=== PATIENT | male | born 1980 | race Caucasian/White ===

== ENCOUNTER 2021-12-25 16:56 | Inpatient (IN) | payer OTHER ==
[2021-12-25] MEDS ORDERED: BISMUTH SUBSALICYLATE 524 MG/30 ML PO PRN (21:25)
[2021-12-25] MEDS ORDERED: MAG HYDROX/AL HYDROX/SIMETH 30 ML UNIT-DOSE CUP PO PRN (21:25)
[2021-12-25] MEDS ORDERED: NICOTINE 10 MG CARTRIDGE (INHALER) IH PRN (21:25)
[2021-12-25] MEDS ORDERED: ONDANSETRON *ODT* 4 MG TABLET SL PRN (21:25)
[2021-12-25] MEDS ORDERED: MAGNESIUM HYDROX 2400MG/30ML ORAL SUSPENSION 30 ML CUP PO PRN (21:25)
[2021-12-25] MEDS ORDERED: P-EPHED 60MG/TRIPROLIDI 2.5MG TABLET PO PRN (21:25)
[2021-12-25] MEDS ORDERED: MENTHOL/PHENOL 1 EACH UD MM PRN (21:25)
[2021-12-25] MEDS ORDERED: ACETAMINOPHEN 325 MG TABLET (FP) PO PRN (21:25)
[2021-12-25] MEDS ORDERED: MAGNESIUM CITRATE 300 ML BOTTLE PO PRN (21:25)
[2021-12-26 00:52] VITALS: BMI 24.3
[2021-12-26] MEDS: THIAMINE HCL 100 MG TABLET (FP) PO SCH ×2 (01:59→23:24)
[2021-12-26] MEDS ORDERED: methaDONE HCL 10 MG TABLET (FOR DETOX USE ONLY) PO ONE (10:05)
[2021-12-26] MEDS: hydrOXYzine PAMOATE 25 MG CAPSULE (FP) PO PRN ×2 (11:16→23:24)
[2021-12-26] MEDS: PRENATAL VITAMINS W/ FOLIC ACID TABLET (FP) PO SCH (11:16)
[2021-12-26] MEDS: METHOCARBAMOL 500 MG TABLET PO PRN ×2 (11:17→23:24)
[2021-12-26 13:32] LABS: CALCIUM 8.4 mg/dL (8.5-10.1)
[2021-12-26 13:33] LABS: ALBUMIN 2.4 g/dl (3.4-5.0)
[2021-12-26 13:43] LABS: HEMATOCRIT 29.7 % (35.4-49); HEMOGLOBIN 8.8 GM/dL (11.7-16.9); MCH 20.6 pg (25.7-33.7); MCHC 29.7 g/dl (32.0-35.9); MEAN CELL VOLUME 69.4 fl (80-96); MEAN PLT VOLUME 8.8 fl (7.5-11.1); PLATELET COUNT 508 10^3/uL (134-434); RBC 4.28 M/mm3 (4.00-5.60); RDW 19.4 % (11.9-15.9); WHITE BLOOD COUNT 14.4 K/mm3 (4.0-10.0)
[2021-12-26 14:53] LABS: CREATININE 0.7 mg/dL (0.55-1.3)
[2021-12-26 14:54] LABS: TOT PROT 6.3 g/dl (6.4-8.2)
[2021-12-26 14:55] LABS: BILIRUBIN,TOTAL 0.2 mg/dL (0.2-1)
[2021-12-26] MEDS: cloNIDine HCL 0.1 MG TABLET PO PRN (23:24)
[2021-12-26] MEDS: MELATONIN 5 MG TABLETS PO PRN (23:24)
[2021-12-27] MEDS: cloNIDine HCL 0.1 MG TABLET PO PRN ×4 (06:36→22:38)
[2021-12-27] MEDS ORDERED: methaDONE HCL 10 MG TABLET (FOR DETOX USE ONLY) ONE (09:15)
[2021-12-27] MEDS: hydrOXYzine PAMOATE 25 MG CAPSULE (FP) PO PRN ×3 (10:47→22:39)
[2021-12-27] MEDS: PRENATAL VITAMINS W/ FOLIC ACID TABLET (FP) PO SCH (10:47)
[2021-12-27] MEDS: METHOCARBAMOL 500 MG TABLET PO PRN ×3 (10:47→22:38)
[2021-12-27] MEDS: diazePAM 5 MG TABLET PO PRN (14:06)
[2021-12-27] MEDS: IBUPROFEN 400 MG TABLET (FP) PO PRN (19:34)
[2021-12-27] MEDS: THIAMINE HCL 100 MG TABLET (FP) PO SCH (22:38)
[2021-12-27] MEDS: MELATONIN 5 MG TABLETS PO PRN (22:38)
[2021-12-28] MEDS: cloNIDine HCL 0.1 MG TABLET PO PRN (06:38)
[2021-12-28] MEDS: IBUPROFEN 400 MG TABLET (FP) PO PRN ×2 (07:58→19:48)
[2021-12-28] MEDS ORDERED: methaDONE HCL 10 MG TABLET (FOR DETOX USE ONLY) PO ONE (10:00)
[2021-12-28 10:15] LABS: BASO % 0.7 % (0-2.0); EOS % 1.5 % (0-4.5); HEMATOCRIT 28.4 % (35.4-49); HEMOGLOBIN 8.5 GM/dL (11.7-16.9); LYMPH % 18.7 % (8-40); MCH 20.8 pg (25.7-33.7); MCHC 29.8 g/dl (32.0-35.9); MEAN CELL VOLUME 69.8 fl (80-96); MEAN PLT VOLUME 8.2 fl (7.5-11.1); MONO % 8.4 % (3.8-10.2); NEUT % 70.7 % (42.8-82.8); PLATELET COUNT 504 10^3/uL (134-434); RBC 4.07 M/mm3 (4.00-5.60); RDW 19.4 % (11.9-15.9); WHITE BLOOD COUNT 9.1 K/mm3 (4.0-10.0)
[2021-12-28] MEDS: PRENATAL VITAMINS W/ FOLIC ACID TABLET (FP) PO SCH (10:16)
[2021-12-28] MEDS: diazePAM 5 MG TABLET PO PRN ×2 (10:16→21:58)
[2021-12-28] MEDS: METHOCARBAMOL 500 MG TABLET PO PRN (10:16)
[2021-12-28 10:21] LABS: ALBUMIN 2.1 g/dl (3.4-5.0); CALCIUM 8.4 mg/dL (8.5-10.1)
[2021-12-28 10:22] LABS: CREATININE 0.6 mg/dL (0.55-1.3)
[2021-12-28 10:25] LABS: TOT PROT 5.7 g/dl (6.4-8.2)
[2021-12-28 10:29] LABS: BILIRUBIN,TOTAL 0.6 mg/dL (0.2-1)
[2021-12-28 13:22] LABS: ANISOCYTOSIS 2+; MACROCYTOSIS 0; OVALOCYTE 1+; PLATELET ESTIMATE INCREASED
[2021-12-28] MEDS ORDERED: BENZOCAINE 20 % GEL TUBE MM PRN (18:02)
[2021-12-28] MEDS: FERROUS SO4 325 MG TABLET (FP) PO SCH (18:10)
[2021-12-28] MEDS: THIAMINE HCL 100 MG TABLET (FP) PO SCH (21:58)
[2021-12-28] MEDS: hydrOXYzine PAMOATE 25 MG CAPSULE (FP) PO PRN (21:59)
[2021-12-29] MEDS: cloNIDine HCL 0.1 MG TABLET PO PRN ×3 (05:31→22:35)
[2021-12-29] MEDS: FERROUS SO4 325 MG TABLET (FP) PO SCH ×3 (07:06→18:21)
[2021-12-29] MEDS ORDERED: methaDONE HCL 10 MG TABLET (FOR DETOX USE ONLY) ONE (09:31)
[2021-12-29] MEDS: PRENATAL VITAMINS W/ FOLIC ACID TABLET (FP) PO SCH (10:26)
[2021-12-29] MEDS: diazePAM 5 MG TABLET PO PRN ×2 (10:27→22:31)
[2021-12-29] MEDS: ACETAMINOPHEN 325 MG TABLET (FP) PO PRN ×2 (10:27→18:23)
[2021-12-29] MEDS: METHOCARBAMOL 500 MG TABLET PO PRN (10:28)
[2021-12-29] MEDS: amLODIPine BESYLATE 5 MG TABLET (FP) PO SCH (14:47)
[2021-12-29] MEDS: THIAMINE HCL 100 MG TABLET (FP) PO SCH (22:29)
[2021-12-29] MEDS: MELATONIN 5 MG TABLETS PO PRN (22:29)
[2021-12-29] MEDS: hydrOXYzine PAMOATE 25 MG CAPSULE (FP) PO PRN (22:31)
[2021-12-30] MEDS: hydrOXYzine PAMOATE 25 MG CAPSULE (FP) PO PRN ×2 (05:54→22:31)
[2021-12-30] MEDS: cloNIDine HCL 0.1 MG TABLET PO PRN ×3 (05:54→22:31)
[2021-12-30] MEDS: FERROUS SO4 325 MG TABLET (FP) PO SCH ×3 (07:03→18:30)
[2021-12-30 09:53] LABS: BASO % 1.1 % (0-2.0); EOS % 2.1 % (0-4.5); HEMATOCRIT 27.4 % (35.4-49); HEMOGLOBIN 8.6 GM/dL (11.7-16.9); LYMPH % 18.6 % (8-40); MCH 21.5 pg (25.7-33.7); MCHC 31.3 g/dl (32.0-35.9); MEAN CELL VOLUME 68.4 fl (80-96); MEAN PLT VOLUME 7.6 fl (7.5-11.1); NEUT % 70.2 % (42.8-82.8); PLATELET COUNT 516 10^3/uL (134-434); RDW 19.6 % (11.9-15.9); WHITE BLOOD COUNT 10.1 K/mm3 (4.0-10.0)
[2021-12-30] MEDS ORDERED: methaDONE HCL 10 MG TABLET (FOR DETOX USE ONLY) PO ONE (10:00)
[2021-12-30] MEDS: PRENATAL VITAMINS W/ FOLIC ACID TABLET (FP) PO SCH (10:08)
[2021-12-30] MEDS: amLODIPine BESYLATE 5 MG TABLET (FP) PO SCH (10:09)
[2021-12-30] MEDS: IBUPROFEN 400 MG TABLET (FP) PO PRN (18:30)
[2021-12-30] MEDS: THIAMINE HCL 100 MG TABLET (FP) PO SCH (22:31)
[2021-12-30] MEDS: MELATONIN 5 MG TABLETS PO PRN (22:32)
[2021-12-30] MEDS: METHOCARBAMOL 500 MG TABLET PO PRN (22:32)
[2021-12-30] MEDS: ACETAMINOPHEN 325 MG TABLET (FP) PO PRN (22:33)
[2021-12-31] MEDS: FERROUS SO4 325 MG TABLET (FP) PO SCH (07:07)
[2021-12-31 09:26] VITALS: BP 136/98; PULSE 90; TEMP 98.6
[2021-12-31] MEDS: amLODIPine BESYLATE 5 MG TABLET (FP) PO SCH (11:08)
[2021-12-31] MEDS: PRENATAL VITAMINS W/ FOLIC ACID TABLET (FP) PO SCH (11:08)
[2021-12-31] MEDS: cloNIDine HCL 0.1 MG TABLET PO PRN (11:08)
[2021-12-31] MEDS: IBUPROFEN 400 MG TABLET (FP) PO PRN (11:10)
[2021-12-31 13:11] LABS: SARS-CoV-2 NAA Not Detected (Not Detected)
== END 2021-12-31 11:30 | disposition home or self-care (01) | DRG 772 ==
LOC: YASAS 16:56 → Y6N 23:52 → UNDOADMIN 23:52 → Y6N 12-31 00:28
PROVIDERS: ADMIT Allergy & Immunology; ATTEND Allergy & Immunology
PROC: HZ42ZZZ Group Counseling for Substance Abuse Treatment, Cognitive-Behavioral (ICD-10-PCS; principal; 2021-12-25)
DX: F11.23 Opioid dependence with withdrawal (principal); F14.10 Cocaine abuse, uncomplicated; F17.210 Nicotine dependence, cigarettes, uncomplicated; D50.9 Iron deficiency anemia, unspecified; R74.01 Elevation of levels of liver transaminase levels; R74.8 Abnormal levels of other serum enzymes
CPT/HCPCS: 36415; 80053; 82607; 82746; 83540; 83550; 85025; 85027; 85045; 86780; C9803; J0735; U0003; U0005